=== PATIENT | male | born 1950 | race Caucasian/White ===

== ENCOUNTER 2023-12-30 16:24 | Emergency (ER) | payer MEDICARE, OTHER ==
[2023-12-30] MEDS: predniSONE 20 MG Tab PO ONE (18:44)
== END 2023-12-30 18:50 | disposition home or self-care (01) ==
LOC: JD.ED 16:24
DX: T63.441A Toxic effect of venom of bees, accidental (unintentional), initial encounter (principal); Z79.890 Hormone replacement therapy
CPT/HCPCS: 99282; J7512; 99283